=== PATIENT | male | born 1985 | race Caucasian/White ===

== ENCOUNTER → 2019-12-13 | Outpatient (CLI) | payer OTHER ==
[~2019-12-13] MED LIST: CELEBREX100 MG/1 C PO; FAMOTIDINE 20 M20 MG PO; IBUPROFEN 600600 M1 PO; LORATIDINE 10 M10 M1 PO; MAGNESIUM OXID400 M1 PO; MOBIC15 MG PO; NOHOMEMEDICATIONS; SUMATRIPTAN SUC50 MG PO; TYLENOL WITH CO1 TA1 PO; VIAGRA100 MG PO
== END ==
LOC: M.MRI
DX: M47.26 Other spondylosis with radiculopathy, lumbar region (principal); M51.27 Other intervertebral disc displacement, lumbosacral region; M51.86 Other intervertebral disc disorders, lumbar region; M51.87 Other intervertebral disc disorders, lumbosacral region; M48.07 Spinal stenosis, lumbosacral region; M43.17 Spondylolisthesis, lumbosacral region

== ENCOUNTER → 2020-01-04 | Outpatient (CLI) | payer OTHER ==
[~2020-01-04] MED LIST changes: +NORCO 5-325 TA1 EAC1 PO
== END | disposition home or self-care (01) ==
LOC: M.PC 01:47
DX: M51.16 Intervertebral disc disorders with radiculopathy, lumbar region (principal); G89.29 Other chronic pain; M79.605 Pain in left leg; M47.26 Other spondylosis with radiculopathy, lumbar region; Z98.890 Other specified postprocedural states; Z79.899 Other long term (current) drug therapy

== ENCOUNTER → 2020-01-25 | Outpatient (CLI) | payer OTHER ==
[~2020-01-25] MED LIST changes: +ROBAXIN 750 MG750 MG PO; +ZYRTEC10 M5 PO
== END | disposition home or self-care (01) ==
LOC: M.PC 01-18 08:40
PROVIDERS: ATTEND Physical Medicine & Rehabilitation
DX: M51.16 Intervertebral disc disorders with radiculopathy, lumbar region (principal); M47.26 Other spondylosis with radiculopathy, lumbar region; G89.29 Other chronic pain; M79.605 Pain in left leg; Z98.890 Other specified postprocedural states; Z79.899 Other long term (current) drug therapy